=== PATIENT | male | born 1965 | race Caucasian/White ===

== ENCOUNTER → 2021-04-20 12:19 | Outpatient (CLI) | payer OTHER, SELFPAY ==
--- NOTE | 2021-04-20 12:26 | CA_ITS ---
APPROVED REPORT EXAM: Comprehensive 2D, Doppler, and color-flow Echocardiogram Embedded Systems Developer: Matilde Pierce, RCS, RVS Ht: 5 ft 10 in Wt: 192lbs BSA: 2.05 BP: 150/100 mmHg Indications: Abn EKG with infarct, chest pressure, HTN 2D Dimensions Aortic Root 2.92 cm M: 3.1 - 3.7 LA Volume 51.60 mL Left Atrium 3.44 cm M: 3.0 - 4.0 LA Volume Index 25.17 mL/m2 (M/F) 16-34 LVOT 2.26 cm (M/F) 1.5-2.5 M-Mode Dimensions RVDd 3.29 cm (0.9-2.6) LA Diam 4.05 cm (1.9-4.0) LVDd 4.47 cm (3.5-5.7) Ao Diam 3.07 cm (2.0-3.7) LVDs 2.40 cm (3.5-5.7) IVSd 1.18 cm (0.6-1.1) PWd 0.97 cm (0.6-1.1) EF (Teich) 77.80% EPSs 0.29 cm FS 46.30% EDV (Teich) 91.00 mL TAPSE 1.86 (<1.7) ESV (Teich) 20.20 mL LV Diastology E Decel Time 173.00 (160-240 msec) E/A Ratio 1.51 MED E' 8.10 (< 7 cm/sec) MED A' 9.20 cm/s E'/MED E' Ratio 12.83 (>14) LAT E' 11.00 (<10 cm/sec) LAT A' 9.40 cm/s E/LAT E' Ratio 9.45 (>14) Aortic Valve LVOT Max 123.00 (70-110 cm/s) LVOT VTI 28.43 cm AoV Peak Richie. 147.00 (50-130 cm/s) AI PHT 246.00 ms AO Peak GR. 8.60 mmHg AO Mean GR. 4.30 (<5 mmHg) AO VTI 33.42 (18-25 cm) ISIS (VTI) 3.41 (2.5-4.5 cm2) Mitral Valve MV A Velocity 69.00 (40-130 cm/s) E/A Ratio 1.51 MV Decel. Time 173.00 (160-240 ms) Pulmonary Valve PV Peak Velocity 123.00 (50-150 cm/s) NE End VMAX 169.00 cm/s Left Ventricle Left atrium is normal size, left ventricle is normal size, there is no concentric left ventricular hypertrophy, visually estimated ejection fraction 55% with no regional wall motion abnormality, diastolic parameters are within normal range. Right Ventricle Right atrium and right ventricle are relatively normal size and contractility. Aortic Valve Aortic valve is minimally thickened and fibrosed, there is no aortic stenosis or aortic insufficiency. Mitral Valve Mitral valve is grossly normal, there is trace mitral regurgitation. Tricuspid Valve Tricuspid grossly normal, there is trace tricuspid regurgitation, tricuspid regurgitation jet velocity is inadequate for calculation of the right ventricular systolic pressure. Pulmonic Valve Pulmonic valve is poorly visualized. Great Vessels Aortic root is normal size. Pericardium No significant pericardial effusion noted. Conclusion 1. Normal left ventricular size, preserved left ventricular systolic function, visually estimated ejection fraction 55% with no regional wall motion abnormality, diastolic parameters are within normal range. 2. Trace mitral and tricuspid regurgitation. 3. No significant pericardial effusion noted. Electronically signed by : Hira De La Cruz, 04/22/2021 11:40:13
[2021-04-20 12:45] LABS: Basophils # 0.1 K/mm3 (0-0.2); Basophils % 0.7 % (0.1-2.0); Eosinophils # 0.1 K/mm3 (0.0-0.4); Eosinophils % 1.6 % (0.1-12.0); Hematocrit 42.3 % (42.0-52.0); Lymphocytes # 2.1 K/mm3 (0.7-4.5); Lymphocytes % 26.8 % (10-50); Mean Corpuscular HGB Conc 33.2 g/dL (31.8-35.4); Mean Corpuscular Hemoglobin 27.4 pg (27.0-31.2); Mean Corpuscular Volume 82.7 fl (80-94); Mean Platelet Volume 7.7 fl (7.4-10.4); Monocytes # 0.6 K/mm3 (0.1-1.0); Monocytes % 7.1 % (1.7-9.3); Neutrophils % 63.9 % (37.0-80.0); Platelet Count 272 K/mm3 (142-424); Red Blood Count 5.12 M/mm3 (4.60-6.20); Red Cell Distribution Width 14.8 % (11.5-17.5); White Blood Count 7.9 K/mm3 (4.8-10.8)
[2021-04-20 13:27] LABS: Alanine Aminotransferase 25 U/L (12-78); Albumin Level 4.3 g/dl (3.5-5.0); Alkaline Phosphatase 110 U/L (38-126); Anion Gap 11.5 mEq/L (5-15); Aspartate Amino Transferase 24 U/L (17-59); Bilirubin,Direct 0.5 mg/dl (0.0-0.4); Bilirubin,Total 0.5 mg/dl (0.2-1.3); Blood Urea Nitrogen 16 mg/dl (9-20); Calcium 9.3 mg/dl (8.4-10.2); Carbon Dioxide 30 mmol/L (22.0-30.0); Chloride 102 mmol/L (98-107); Chol/HDL Ratio 5.8 (1-3.5); Cholesterol 239 mg/dl (140-200); Estimated Glomerular Filt Rate 77 ml/min (>60); GFR (African American) 94 ML/MIN (>60); Glucose 101 mg/dl (74-100); HDL Cholesterol 41 mg/dl (40-60); Potassium 4.5 mmoL/L (3.5-5.1); Sodium 139 mmol/L (136-145); Total Protein,Serum 7.4 g/dl (6.3-8.2); Triglycerides 227 mg/dl (30-150); VLDL Cholesterol 45 mg/dL (0-40)
[2021-04-20 13:38] LABS: Direct LDL Cholesterol 157.73 mg/dL (100-129)
[2021-04-20 13:39] LABS: Troponin I < 0.01 ng/ml (0.00-0.034)
[2021-04-20 13:46] LABS: Free T4 (Free Thyroxine) 0.98 ng/dl (0.78-2.19)
[2021-04-20 13:57] LABS: Thyroid Stimulating Hormone 2.35 uIU/mL (0.465-4.68)
== END ==
PROVIDERS: Visit Provider Internal Medicine
DX: R06.00 Dyspnea, unspecified (principal); R07.9 Chest pain, unspecified; R42 Dizziness and giddiness; R94.31 Abnormal electrocardiogram [ECG] [EKG]; I10 Essential (primary) hypertension; E78.5 Hyperlipidemia, unspecified; R53.83 Other fatigue; Z82.49 Family history of ischemic heart disease and other diseases of the circulatory system
CPT/HCPCS: 36415; 80048; 80061; 80076; 84439; 84443; 84484; 85025; 93306; U0003

== ENCOUNTER 2021-05-10 14:13 | Observation (INO) | payer OTHER, SELFPAY ==
--- NOTE | 2021-05-10 13:49 | ECG_ITS ---
APPROVED REPORT Exam: Resting ECG HR:62 bpm ECG Measurements Heart Rate 62 AXES MA 164 P 14 QRSd 82 QRS -38 QT 436 T -17 QTc 442 Conclusion Normal sinus rhythm Left axis deviation Late r wave progression Abnormal ECG Electronically signed by : Gregorio Mackey MD 05/11/2021 11:45:16
[2021-05-10 14:13] VITALS: BP 159/95; PULSE 65; RESP 18; TEMP 36.9; O2SAT 99; BMI 26.6
--- NOTE | 2021-05-10 14:22 | XR_ITS ---
PROCEDURE: XR CHEST PORTABLE CLINICAL HISTORY: chest pain COMPARISON: No exams were available for comparison FINDINGS: The cardiomediastinal silhouette and pulmonary vascularity are within normal limits. The lungs are clear without infiltrates, suspicious nodules, or pleural effusions. No acute bony abnormalities. IMPRESSION: No acute findings. Dictated by: Zeb Carmona MD 05/10/2021 15:09 Zeb Carmona MD in [place] 05/10/2021 15:09
[2021-05-10 14:31] LABS: Basophils % 0.5 % (0.1-2.0); Eosinophils # 0.1 K/mm3 (0.0-0.4); Hematocrit 40.3 % (42.0-52.0); Hemoglobin 13.9 g/dL (14.1-18.0); Lymphocytes # 2.2 K/mm3 (0.7-4.5); Lymphocytes % 28.7 % (10-50); Mean Corpuscular HGB Conc 34.4 g/dL (31.8-35.4); Mean Corpuscular Hemoglobin 28.2 pg (27.0-31.2); Mean Corpuscular Volume 81.8 fl (80-94); Mean Platelet Volume 7.9 fl (7.4-10.4); Monocytes # 0.5 K/mm3 (0.1-1.0); Monocytes % 6.4 % (1.7-9.3); Neutrophils # 4.9 K/mm3 (1.8-7.8); Neutrophils % 63.3 % (37.0-80.0); Platelet Count 270 K/mm3 (142-424); Red Blood Count 4.93 M/mm3 (4.60-6.20); Red Cell Distribution Width 15.1 % (11.5-17.5); White Blood Count 7.7 K/mm3 (4.8-10.8)
[2021-05-10 14:45] VITALS: BP 134/92; PULSE 57; RESP 15; O2SAT 98
[2021-05-10 14:46] LABS: Chloride 103 mmol/L (98-107); Potassium 3.6 mmoL/L (3.5-5.1); Sodium 141 mmol/L (136-145)
[2021-05-10 14:49] LABS: Anion Gap 12.6 mEq/L (5-15); Blood Urea Nitrogen 22 mg/dl (9-20); Calcium 9.1 mg/dl (8.4-10.2); Carbon Dioxide 29 mmol/L (22.0-30.0); Creatinine Clearance Estimated 89 mL/min (50-200); Estimated Glomerular Filt Rate 69 ml/min (>60); GFR (African American) 84 ML/MIN (>60); Glucose 127 mg/dl (74-100)
--- NOTE | 2021-05-10 14:58 | HMH.EDGENADL ---
ED Disposition Clinical Impression: Chest pain Qualifiers: Chest pain type: unspecified Qualified Code(s): R07.9 - Chest pain, unspecified Disposition: Admitted as Observation Condition on Discharge: Good - Critical Care Critical Care Time: No Attestation: On 05/10/21, the high probability of a clinically significant, sudden or life threatening deterioration of the following system(s) required my full and direct attention, intervention and personal management. The time I documented below is in addition to time spent performing reported procedures but includes the following listed in this critical care notation. Medical Decision Making - Medical Records Medical records reviewed: Yes: I reviewed the patient's medical records. MR Comment: Reviewed cardiology office visit 04/20/2021. Note indicates that he was to have an echocardiogram and if it was okay he could be scheduled for an outpatient stress test. If echo abnormal, heart cath that day. Echocardiogram was unremarkable. - Laci Inquiry Pt receiving controlled substance: No Vital Signs: 05/10/21 14:13 05/10/21 14:45 05/10/21 15:30 Temperature 98.4 F Temperature Source Oral Pulse Rate 57 L 58 L Pulse Rate [Right] 65 Respiratory Rate 18 15 18 Blood Pressure 134/92 H 142/101 H Blood Pressure [Right Arm] 159/95 H Blood Pressure Mean 120 Blood Pressure Mean [Right Arm] 116 Blood Pressure Source [Right Arm] Blood Pressure Position [Right Arm] 02 Sat by Pulse Oximetry 99 98 98 Oxygen Delivery Method Room Air 05/10/21 16:23 Temperature 97.7 F Temperature Source Oral Pulse Rate Pulse Rate [Right] 55 L Respiratory Rate 22 Blood Pressure Blood Pressure [Right Arm] 141/94 H Blood Pressure Mean Blood Pressure Mean [Right Arm] 109 Blood Pressure Source [Right Arm] Automatic Cuff Blood Pressure Position [Right Arm] Supine 02 Sat by Pulse Oximetry 99 Oxygen Delivery Method Room Air - Lab Data Lab Results 05/10/21 14:15: WBC 7.7, RBC 4.93, Hgb 13.9 L, Hct 40.3 L, MCV 81.8, MCH 28.2, MCHC 34.4, RDW 15.1, Plt Count 270, MPV 7.9, Neut % (Auto) 63.3, Lymph % (Auto) 28.7, [place] % (Auto) 6.4, Eos % (Auto) 1.0, Baso % (Auto) 0.5, Neut # (Auto) 4.9, Lymph # (Auto) 2.2, [place] # (Auto) 0.5, Eos # (Auto) 0.1, Baso # (Auto) 0.0 05/10/21 14:15: Sodium 141, Potassium 3.6, Chloride 103, Carbon Dioxide 29, Anion Gap 12.6, BUN 22 H, Creatinine 1.10, Estimated Creat Clear 89, Estimated GFR 69, Est GFR ( Amer) 84, Glucose 127 H, Calcium 9.1, Troponin I < 0.01 Result diagrams: 05/10/21 14:15 05/10/21 14:15 Orders (Tests/Meds): ORDERS Category Date Time Status Troponin I Q3H Lab 05/10/21 17:30 Ordered Troponin I Q3H Lab 05/10/21 20:30 Ordered - Radiology Data #1 Image(s): Chest Image Reviewed: Yes I have reviewed radiologist's interpretation PROCEDURE: XR CHEST PORTABLE CLINICAL HISTORY: chest pain COMPARISON: No exams were available for comparison FINDINGS: The cardiomediastinal silhouette and pulmonary vascularity are within normal limits. The lungs are clear without infiltrates, suspicious nodules, or pleural effusions. No acute bony abnormalities. IMPRESSION: No acute findings. Dictated by: Zeb Carmona MD 05/10/2021 15:09 Zeb Carmona MD in [place] 05/10/2021 15:09 - ECG Data Tracing #1 EKG interpreted by Sohan Christopher MD: Rhythm: sinus Rate: 62 [place]: Left Ectopy: none Conduction: normal ST Segment Changes: none T Wave Changes: none Q Waves: none Poor R wave progression No evidence of acute ischemia or injury - Physician Consults Physician Consulted: Tiara Time: 15:28 Reason -: Cardiology Eval/Care Comment/Response: States if primary care provider admits to the hospital he will perform heart cath tomorrow, later in the afternoon Additional Consult: Kady Time: 15:52 Reason -: Admission Comment/Response: Agrees to admit the patient to the hospital. We discussed
--- NOTE | 2021-05-10 15:00 | PC.NURSE ---
Rad at bedside
[2021-05-10 15:16] LABS: Troponin I < 0.01 ng/ml (0.00-0.034)
--- NOTE | 2021-05-10 15:28 | PC.NURSE ---
Dr Christopher speaking to Dr Menjivar
[2021-05-10 15:30] VITALS: BP 142/101; PULSE 58; RESP 18; O2SAT 98
--- NOTE | 2021-05-10 15:30 | PC.NURSE ---
Dr brooke to return call
[2021-05-10 16:23] VITALS: BP 141/94; PULSE 55; RESP 22; TEMP 36.5; O2SAT 99; BMI 26.6
[2021-05-10 16:30] LABS: Coronavirus 19, PCR Not Detected (NotDetected); Influenza A, PCR Not Detected (NotDetected); Influenza B, PCR Not Detected (NotDetected)
--- NOTE | 2021-05-10 16:30 | HMH.PHAINT ---
MEDICATION RECONCILIATION COMPLETE USING LIST FROM MD OFFICE VISIT AND EXTERNAL PHARMACY FILL HX.
--- NOTE | 2021-05-10 16:53 | PC.NURSE ---
gave report to Michaela Granger at this time. Waiting on COVID swab to result prior to admission
[2021-05-10 17:00] VITALS: BP 142/102; PULSE 58; RESP 18; TEMP 36.9; O2SAT 98
[2021-05-10 18:55] LABS: Troponin I < 0.01 ng/ml (0.00-0.034)
[2021-05-10 20:00] VITALS: BP 138/76; PULSE 70; PULSE 80; RESP 17; TEMP 36.6; O2SAT 97; O2SAT 99
[2021-05-10 21:09] LABS: Troponin I < 0.01 ng/ml (0.00-0.034)
[2021-05-11] VITALS (13 sets, daily range): BP systolic 93–154; BP diastolic 58–92; PULSE 55–110; RESP 16–20; TEMP 36.6–37; O2SAT 95–99; BMI 26.6
--- NOTE | 2021-05-11 | IR_ITS ---
APPROVED REPORT Patient Location: Inpatient Experimental Box Tester: JACQUELINE Thompson RT (R) PROCEDURES 1. Left heart catheterization 2. Selective coronary arteriography 3. Left ventriculography INDICATION 1. Unstable angina, 2. Abnormal EKG SCAI INDICATION Patient is a 55-year-old white male who presented with unstable angina. Progressive chest pain. Secondary to this and progressive symptoms referred directly for left heart catheterization Informed consent was obtained prior to the procedure. COMPLICATIONS NONE Estimated Blood Loss: LESS THAN 10 ML TECHNIQUE One percent lidocaine was used to anesthetize the right groin. The right femoral artery was accessed via the Seldinger technique. A 4-[place] sheath was placed in the right femoral artery. The JL-4 and JR-4 catheter was also used to perform left heart catheterization left ventriculogram and selective coronary angiogram. At the end of the procedure the patient was transferred to the post-op holding area in stable condition for arterial sheath removal. ANGIOGRAPHIC RESULTS The left main artery Angiographically normal The left anterior descending artery Angiographically normal The circumflex artery Angiographically normal The right coronary artery Large and dominant and angiographically normal The JAIMES ventriculogram reveals Normal left ventricular systolic function with an ejection fraction of 60% The left ventricular end-diastolic pressure 18 Angio-Seal placed in the right common femoral artery IMPRESSION 1. Normal coronary arteries 2. Normal left ventricular systolic function 3. Mild elevation in left ventricular end-diastolic pressure 4. Successful placement of an Angio-Seal device in the right common femoral artery PLAN 1. Continue aggressive medical therapy. Look for noncardiac causes of chest pain. Aggressive risk factor modification. Follow-up in cardiology clinic in 1 to 2 weeks for further evaluation and treatment Electronically signed by : Kevan Menjivar MD 05/11/2021 14:41:59
--- NOTE | 2021-05-11 07:26 | HMH.PHAVTE ---
[facility] Pharmacy VTE Monitoring - Patient Demographics Admission date: 05/10/21 Report Date: 05/11/21 Time: 07:26 Allergies/Adverse Reactions: Patient Allergies No Known Allergies Allergy (Verified 04/20/21 10:50) Height: 1.78 m Weight: 84.459 kg Patient Problems: Current Active Problems Chest pain (Acute) - VTE Risk Labs: VTE Related Lab Results Hgb 13.9 g/dL (14.1-18.0) L 05/10/21 14:15 Hct 40.3 % (42.0-52.0) L 05/10/21 14:15 Plt Count 270 K/mm3 (142-424) 05/10/21 14:15 BUN 22 mg/dl (9-20) H 05/10/21 14:15 Creatinine 1.10 mg/dl (0.66-1.25) 05/10/21 14:15 Estimated Creat Clear 89 mL/min (50-200) 05/10/21 14:15 Was VTE Risk Assessment Performed: Yes VTE Score: 1 VTE Risk Level: Low Risk Clinical Trial Participant: No - Prophylaxis VTE Prophylaxis Ordered?: Yes Types of VTE Prophylaxis: TEDS Knee High
--- NOTE | 2021-05-11 07:48 | HMH.CNCARD ---
History of Present Illness Consult date: 05/11/21 Requesting physician: Julio Hillman Consult reason: chest pain Chief complaint: Chest pain History of present illness: 55-year-old male presented to the emergency room last evening with worsening midsternal chest pain for the past 3 days. Patient states he was seen in cardiology office last week in which he was to be scheduled for a Myoview stress test and an echocardiogram. Echocardiogram reveals EF 55% with no regional wall abnormality. Mild MR and TR noted. Patient was unable to do a stress test due to not being able to get off work. Patient states he has been having this midsternal chest pain for the past 6 months consistently. But states in the last 3 days he has been breaking out into cold sweats and becoming very short of breath. Patient states especially with activity he will experience increased shortness of breath along with diaphoresis. Patient complains of dizziness especially with position change. Patient denies palpitations. Patient is chest pain-free at this time. Denies shortness of breath. No swelling noted of the lower extremity. Patient has no known history of cardiac disease. Patient states mother does have cardiac issues. Patient states he has history of hypertension, in which he states is controlled due to a medication change last week. Echo:Conclusion 1. Normal left ventricular size, preserved left ventricular systolic function, visually estimated ejection fraction 55% with no regional wall motion abnormality, diastolic parameters are within normal range. 2. Trace mitral and tricuspid regurgitation. 3. No significant pericardial effusion noted. Initial work-up was formed in the ED. EKG revealed normal sinus rhythm, left axis deviation, abnormal ECG with a heart rate of 72 bpm. residential monitor reveals sinus rhythm with a heart rate of 68 bpm. Vital signs are stable. Labs are unremarkable. Serial troponins are negative x3. Discussed plan of care with Dr. Menjivar. Orders were received from Dr. Menjivar. Patient is to be set up for a left heart catheterization today due to unstable angina. Discussed the risk and benefits with patient undergoing left heart catheterization with right groin access. Patient verbalizes understanding and is agreeable to procedure. Pending on the results of the left heart catheterization, medication and treatment therapies may be recommended. Please notify cardiology of any change in patient status. Thank you for allowing cardiology to participate in the care of this patient. [facility] History I have reviewed the patient's past medical history: Yes Medical History: Reports:: Gastroesophageal Reflux Disease(GERD), Hyperlipidemia, Hypertension Denies:: Cancer, Diabetes Mellitus Type 1, Diabetes Mellitus Type 2, MRSA *Have you ever received a pneumonia vaccine?: No *Have you received a flu vaccine this season?: No Other Surgeries: Yes: No Previous Surgery Amputation: No Fractures: No - *Social History Last grade of school completed: Some college Smoking Status: Never smoker Alcohol Intake: never Substance Use Type: denies use *Occupational Status:: employed Housing: house Household Members: spouse *Travel in the last 8 weeks: None Family Hx:: Coronary Artery Disease, Stroke Meds Home Medications Medication Instructions Recorded Confirmed Type lysine 500 mg tablet 500 mg PO DAILY 08/17/20 05/10/21 History zolpidem 10 mg tablet 10 mg PO HS PRN #30 tab 04/19/21 05/10/21 Rx aspirin 81 mg tablet,delayed 81 mg PO DAILY 04/20/21 05/10/21 History release omeprazole 20 mg capsule,delayed 20 mg PO DAILY cap 04/20/21 05/10/21 History release potassium gluconate 595 mg (99 mg) 99 mg PO DAILY tab 04/20/21 05/10/21 History tablet,extended release Amlodipine Besylate [Amlodipine 10 mg PO DAILY 05/10/21 05/10/21 History 10mg Tab] Atorvastatin Calcium [Lipitor 40mg 40 mg PO DAILY 05/10/21 05/10/21 History Tab]
--- NOTE | 2021-05-11 15:04 | PC.NURSE ---
called and spoke with naveed bear. relayed patient was back from heart cath and the results. patient does wish to go home if md is okay with that. no complaints of pain. dressing to r groin clean dry and intact. vitals stable.
--- NOTE | 2021-05-11 16:29 | HMH.HPDC ---
General - General Admission date:: 05/10/21 Discharge date: 05/11/21 *Admission Date: 05/10/21 *Chief complaint: chest tightness *History of present illness: 55-year-old male presented to the emergency room last evening with worsening midsternal chest pain for the past 3 days. P Patient states he has been having this midsternal chest pain for the past 6 months consistently. But states in the last 3 days he has been breaking out into cold sweats and becoming very short of breath. Patient states especially with activity he will experience increased shortness of breath along with diaphoresis. Patient complains of dizziness especially with position change. Patient denies palpitations. Patient admitted for chest pain and cardiology work up [facility] History I have reviewed the patient's past medical history: Yes Medical History: Reports:: Gastroesophageal Reflux Disease(GERD), Hyperlipidemia, Hypertension Denies:: Cancer, Diabetes Mellitus Type 1, Diabetes Mellitus Type 2, MRSA *Have you ever received a pneumonia vaccine?: No *Have you received a flu vaccine this season?: No Other Surgeries: Yes: No Previous Surgery Amputation: No Fractures: No - *Social History Last grade of school completed: Some college Smoking Status: Never smoker Alcohol Intake: never Substance Use Type: denies use *Occupational Status:: employed Housing: house Household Members: spouse *Travel in the last 8 weeks: None Family Hx:: Coronary Artery Disease, Stroke Review of Systems - Review of Systems Review of systems:: pertinent systems reviewed and negative unless documented below - Constitutional Denies body ache(s), Denies fatigue - Eyes Denies blurry vision - ENT Denies bleeding gums - *Cardiovascular Reports chest pain at rest, Reports chest pain with activity, Reports shortness of breath with activity - *Respiratory Denies chest congestion - *Gastrointestinal Denies bloating - *Genitourinary Denies urinary urgency - *Musculoskeletal Denies joint pain - Integumentary/Breasts Denies change in hair - *Neurologic Reports weakness, Denies abnormal hearing - Psychiatric Denies lack of enjoyment - Endocrine Denies excessive sweating - Hematologic/Lymphatic Denies easy bruising - Allergic/Immunologic Denies itchy eyes Exam Vital signs and Labs for Last 24 Hours: Temp Pulse Resp BP Pulse Ox 98.6 F 64 16 93/58 L 97 05/11/21 08:00 05/11/21 15:15 05/11/21 15:15 05/11/21 15:15 05/11/21 15:15 Laboratory Results - last 24 hr 05/10/21 16:20: SARS-CoV-2 (PCR) Not detected, Influenza A Untype (PCR) Not detected, Influenza Type B (PCR) Not detected 05/10/21 18:30: Troponin I < 0.01 05/10/21 20:35: Troponin I < 0.01 I & O for Last 24 hours: Intake & Output 05/09/21 05/10/21 05/11/21 05/12/21 11:59 11:59 11:59 11:59 Intake Total 180 / 180 Balance 180 / 180 Weight 186 lb 3.2 oz - Constitutional no acute distress - *Routine HEENT Exam Head: Present: normocephalic Eye: Present: PERRL ENT: Present: mucous membranes moist - *Routine Neck Exam Present: supple. Absent: lymphadenopathy - *Routine Respiratory Exam Present: CTA bilaterally - *Routine Cardiovascular Exam Present: RRR - *Routine Abdominal Exam Present: soft, normoactive bowel sounds. Absent: tenderness - *Routine Rectal Exam Rectal:: deferred - *Routine Genitalia Exam Genitalia:: deferred - *Routine Extremities Exam Absent: cyanosis, clubbing, edema - *Routine Skin Exam Present: warm. Absent: rash - *Routine Neurological Exam Present: alert, oriented X3 - Routine Psychiatric Exam Present: normal affect Hospital Course Hospital Course: Laboratory Tests 05/10/21 05/10/21 05/10/21 14:15 14:15 16:20 WBC 7.7 RBC 4.93 Hgb 13.9 L Hct 40.3 L MCV 81.8 MCH 28.2 MCHC 34.4 RDW 15.1 Plt Count 270 MPV 7.9 Neut % (Auto) 63.3 Lymph % (Auto) 28.7 M
--- NOTE | 2021-05-11 17:35 | PC.NURSE ---
IV removed, Pt. tolerated well. Awaiting spouse to go over discharge instructions.
--- NOTE | 2021-05-11 17:45 | PC.NURSE ---
Discharge education provided to pt. and spouse. Questions encouraged and answered. Both v/u
--- NOTE | 2021-05-11 17:55 | PC.NURSE ---
Pt. left unit via wheel chair accompanied by staff x1 to private vehicle.
== END 2021-05-11 17:55 | disposition home or self-care (01) ==
LOC: ER 15:52 → 2ND 16:00
PROVIDERS: Internal Medicine; Admitting Provider Family Medicine; Emergency Provider Emergency Medicine; PCP Family Medicine; Visit Provider Family Medicine
DX: I25.110 Atherosclerotic heart disease of native coronary artery with unstable angina pectoris (principal); Z20.822 Contact with and (suspected) exposure to COVID-19; I10 Essential (primary) hypertension; K21.9 Gastro-esophageal reflux disease without esophagitis; Z82.49 Family history of ischemic heart disease and other diseases of the circulatory system; E78.5 Hyperlipidemia, unspecified; Z79.899 Other long term (current) drug therapy
CPT/HCPCS: 71045; 80048; 84484; 85025; 93005; 93458; 99152; 99284; C1725; C1760; C1769; G0378; J1644; Q9967; U0003

== ENCOUNTER → 2022-06-06 18:21 | Outpatient (CLI) | payer OTHER, SELFPAY ==
[2022-06-06 18:32] VITALS: BMI 23.5
[2022-06-12 15:09] LABS: Acetone <.010 g/dL (0.000-0.010); Butalbital <1 ug/mL (1-10); Chlordiazepoxide <0.1 ug/mL (0.1-0.9); Diazepam <0.1 ug/mL (0.1-0.9); Ethanol <.010 g/dL (0.000-0.010); Isopropanol <.010 g/dL (0.000-0.010); Pentobarbital <1 ug/mL (1-5)
== END ==
PROVIDERS: PCP Family Medicine; Visit Provider Nurse Practitioner
DX: Z79.899 Other long term (current) drug therapy (principal)
CPT/HCPCS: 80306